=== PATIENT | male | born 2000 | race Two or more races ===

== ENCOUNTER 2023-06-12 18:24 | Emergency (ER) | payer SELFPAY ==
[2023-06-12 19:01] LABS: APPEARANCE,URINE CLEAR (Clear); BILIRUBIN,URINE NEGATIVE (Negative); COLOR,URINE YELLOW (Yellow); GLUCOSE,URINE NEGATIVE (Negative); KETONES,URINE NEGATIVE (Negative); LEUKOCYTE ESTERASE,URINE NEGATIVE (Negative); NITRITE,URINE NEGATIVE (Negative); OCCULT BLOOD,URINE NEGATIVE (Negative); PROTEIN,URINE NEGATIVE (Negative)
[2023-06-12 19:18] LABS: BACTERIA,URINE FEW /hpf (FEW); MUCUS,URINE NOT SEEN /hpf (FEW); RBC,URINE NOT SEEN /hpf (0-5); SQUAMOUS EPITHELIAL CELLS,UR NOT SEEN /hpf (0-5); WBC,URINE 0-5 /hpf (0-5)
[2023-06-12] MEDS ORDERED: cefTRIAXone 250 MG Vial IM ONE (19:35)
[2023-06-12] MEDS ORDERED: Doxycycline Monohydrate 100 MG Cap PO ONE (19:35)
[2023-06-12] MEDS ORDERED: Lidocaine 1% 10 ML MDV ONE (20:00)
== END 2023-06-12 20:11 | disposition home or self-care (01) ==
LOC: JD.ED 18:24
DX: N45.1 Epididymitis (principal)
CPT/HCPCS: 81001; 96372; 99284; A9270; J0696; 99283